=== PATIENT | female | born 1980 | race African-American/Black ===

== ENCOUNTER 2018-02-18 00:31 | Inpatient (IN) ==
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
[2018-02-18] MEDS ORDERED: Morphine Inj 4 MG/ML Vial IV.PUSH ONE (00:51)
[2018-02-18] MEDS: Sod Chloride 0.9% Inj 1,000 ML IV.CONT SCH ×2 (01:24→11:13)
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
[2018-02-18] MEDS: ceFAZolin 2 GM Premix Inj 2 GM/50 ML PIGGYBACK IV.SIG SCH ×3 (02:18→17:58)
[2018-02-18] MEDS ORDERED: Chlorhexidine Gluconate 2% 1 Pack (2 Cloths) TOPICAL SCH (04:00)
[2018-02-18] MEDS ORDERED: Chlorhexidine Gluconate 2% 1 Pack (2 Cloths) TOPICAL PRN (04:00)
[2018-02-18] MEDS: HYDROmorphone PF Inj 2 MG/ML Vial IV.PUSH PRN ×3 (04:56→14:16)
[2018-02-18] MEDS ORDERED: Chlorhexidine Gluconate 2% 1 Pack (2 Cloths) TOPICAL ONE (05:52)
[2018-02-18] MEDS ORDERED: Sodium Chlor 0.9% Inj 500 ML IV.SIG SCH (06:00)
[2018-02-18] MEDS: Docusate Sodium 100 MG Capsule PO SCH (09:26)
[2018-02-18 11:23] LABS: Hematocrit 24.2 % (35.0-46.0); Hemoglobin 7.3 gm/dL (11.6-15.3); Mean Corpuscular Hemoglobin 19.1 pg (27.0-34.0); Mean Corpuscular Volume 63.5 fL (80.0-100.0); Mean Platelet Volume 7.5 fL (7.0-11.0); Platelet Count 229 th/mm3 (150-450); Red Blood Count 3.82 mil/mm3 (4.00-5.30); Red Cell Distribution Width 19.4 % (11.6-17.2); White Blood Count 6.3 th/mm3 (4.0-11.0)
[2018-02-18 11:25] LABS: Mean Corpuscular HGB Conc 30.1 % (32.0-36.0)
[2018-02-18 11:37] LABS: Activated Partial Thrombo Time 22.6 sec (24.3-30.1); Prothrombin Time 10.6 sec (9.8-11.6)
[2018-02-18 11:58] LABS: Anion Gap 7 meq/L (5-15); Blood Urea Nitrogen 9 mg/dL (7-18); Calcium 8.3 mg/dL (8.5-10.1); Carbon Dioxide 25.3 meq/L (21.0-32.0); Chloride 108 meq/L (98-107); Glomerular Filtration Rate Greater Than 89 mL/min (>89); Glucose,Random 107 mg/dL (74-106); Potassium 3.4 meq/L (3.5-5.1); Sodium 140 meq/L (136-145)
[2018-02-18 13:12] LABS: Eosinophils 1 % (0-4); Lymphocytes 24 % (9-44); Monocytes 3 % (0-8); Platelet Estimate Normal (Normal); Platelet Morphology Normal (Normal)
--- NOTE | 2018-02-18 15:46 | P.PNWCN ---
Wound Care Nurse Consult Description: Wound consult ordered by for wound vac placement. Communicated with: Dr.Altaras Chen Recommendation: 1. please refer to wound vac management guideline maintaining proper seal. Additional information: Patient was seen today for wound vac placement to right deltoid region.Patient tolerated wound care well.Please see following documentation. Wound/Pressure Injury - Patient Status Premedicated for Pain Prior to Dressing Change: Yes - Wound R Deltiod Wound Type: Traumatic Wound Is This a Chronic Wound: No Requested from Provider a Wound Care Consult: No (Artur CHIRINOS,[facility] seen 02/18) Length (cm): 6.8 Width (cm): 7.2 Depth (cm): 1.4 Wound Bed Appearance: [place], Red Surrounding Tissue Appearance: Blanched/Dull Surrounding Tissue Temperature: Cool Drainage Description: Sanguinous Drainage Amount: Scant Drainage Odor: No Odor Dressing Status: Changed Cleansing Solution: Saline Wound Packing Type: Woundvac Sponge Primary Dressing: Negative Pressure Wound Dressing Wound Dressing Change Date: 02/18/18 Wound Vac - Wound Vac R Deltiod Pressure Setting (mmHg): 125 Mode Setting: Continuous Drainage Description: Serosanguinous Foam type: Black (Single layer of adaptic), Other
[2018-02-18] MEDS: Menthol 5.8 MG Lozenge BUCCAL PRN (23:10)
[2018-02-19] MEDS: Docusate Sodium 100 MG Capsule PO SCH ×2 (00:03→10:12)
[2018-02-19 07:59] LABS: Baso % (Auto) 0.6 % (0.0-2.0); Eos # (Auto) 0.1 th/mm3 (0.0-0.4); Eos % (Auto) 2.2 % (0.0-4.0); Hematocrit 25.1 % (35.0-46.0); Hemoglobin 7.5 gm/dL (11.6-15.3); Lymph # (Auto) 1.3 th/mm3 (1.0-4.8); Mean Corpuscular Hemoglobin 18.9 pg (27.0-34.0); Mean Platelet Volume 8.7 fL (7.0-11.0); Mono # (Auto) 0.5 th/mm3 (0.0-0.9); Mono % (Auto) 7.7 % (0.0-8.0); Neut # (Auto) 4.2 th/mm3 (1.8-7.7); Neut % (Auto) 68.5 % (16.0-70.0); Platelet Count 245 th/mm3 (150-450); Red Blood Count 3.98 mil/mm3 (4.00-5.30); Red Cell Distribution Width 18.7 % (11.6-17.2); White Blood Count 6.1 th/mm3 (4.0-11.0)
[2018-02-19 08:18] LABS: Anion Gap 7 meq/L (5-15); Blood Urea Nitrogen 9 mg/dL (7-18); Calcium 8.3 mg/dL (8.5-10.1); Carbon Dioxide 29.8 meq/L (21.0-32.0); Chloride 105 meq/L (98-107); Glomerular Filtration Rate Greater Than 89 mL/min (>89); Glucose,Random 80 mg/dL (74-106); Potassium 3.5 meq/L (3.5-5.1); Sodium 142 meq/L (136-145)
[2018-02-19 09:27] VITALS: RESP 20
[2018-02-19 13:04] VITALS: O2SAT 99
[2018-02-19] MEDS: Menthol 5.8 MG Lozenge BUCCAL PRN (14:47)
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
[2018-02-19 16:27] VITALS: BP 109/57; PULSE 63; TEMP 98.2
[2018-02-19] MEDS ORDERED: Morphine Inj 4 MG/ML Vial IV.PUSH ONE (17:15)
== END 2018-02-19 18:45 | disposition home or self-care (01) ==
LOC: NEPC 00:31 → NEDA 00:31 → N06 03:49
PROVIDERS: ADMIT Surgery Trauma Surgery; ATTEND Surgery Trauma Surgery